=== PATIENT | female | born 1990 | race Caucasian/White ===

== ENCOUNTER 2017-02-07 05:45 | Day surgery (SDC) | payer BC ==
[~2017-02-07] VITALS: Ht 165.1 cm; Wt 90.7 kg
[2017-02-07 06:55] LABS: HCG,QUAL RESULT NEGATIVE (NEGATIVE)
[2017-02-07] MEDS ORDERED: WATER FOR IRRIGATION,STERILE 1,000 ML IRRIG.SOLN IR ONE (07:20)
[2017-02-07] MEDS ORDERED: PROPOFOL 200MG/ 20ML VIAL (DIPRIVAN) IV ONE (07:20)
[2017-02-07] MEDS ORDERED: ONDANSETRON HCL 4 MG/2 ML VIAL IVP ONE (07:20)
[2017-02-07] MEDS ORDERED: SEVOFLURANE 15 MIN GAS INH ONE (07:20)
[2017-02-07] MEDS ORDERED: MIDAZOLAM HCL 5 MG/5 ML VIAL IVP ONE (07:20)
[2017-02-07] MEDS ORDERED: SUCCINYLCHOLINE CHLORIDE 20 MG/ML(QUELICIN) IVP ONE (07:20)
[2017-02-07] MEDS ORDERED: fentaNYL CITRATE/PF 100 MCG/2 ML AMP IVP ONE (07:20)
[2017-02-07] MEDS ORDERED: fentaNYL CITRATE 250 MCG/5 ML AMP IV ONE (07:20)
[2017-02-07] MEDS ORDERED: LR 1,000 ML IV.SOLN IV ONE (07:20)
[2017-02-07] MEDS ORDERED: DEXAMETHASONE SOD PHOSPHATE 4 MG/ML VIAL IVP ONE (07:20)
[2017-02-07] MEDS ORDERED: LR 1,000 ML IV SCH (08:08)
[2017-02-07] MEDS ORDERED: METOCLOPRAMIDE HCL 10 MG/2 ML VIAL IVP PRN (08:15)
[2017-02-07] MEDS ORDERED: MORPHINE 4 MG/ML INJ. SYRINGE IVP PRN ×3 (08:15)
[2017-02-07] MEDS ORDERED: MORPHINE 4 MG/ML INJ. SYRINGE ONE (08:38)
[2017-02-07 11:04] VITALS: BP_SYST 118
== END 2017-02-07 10:55 | disposition home or self-care (01) ==
LOC: SDS 05:45 → SMU 05:45 → SDS 10:55
PROVIDERS: ATTEND Otolaryngology
DX: J35.01 Chronic tonsillitis (principal); E66.9 Obesity, unspecified; Z68.33 Body mass index [BMI] 33.0-33.9, adult
CPT/HCPCS: 42826; 84703; 88304; J0330; J1100; J2250; J2270; J2405; J2704; J3010 ×2; J7120

== ENCOUNTER 2017-02-09 07:29 | Emergency (ER) | payer BC ==
[~2017-02-09] VITALS: Ht 165.1 cm; Wt 90.7 kg
[2017-02-09 07:33] VITALS: BP_SYST 147
[2017-02-09] MEDS ORDERED: NACL 0.9% 1,000 ML IV ONE (07:38)
[2017-02-09] MEDS ORDERED: ONDANSETRON HCL 4 MG/2 ML VIAL IVP ONE (07:45)
[2017-02-09] MEDS ORDERED: LIDOCAINE 4% TOPICAL 50 ML BOTTLE MM ONE (07:45)
[2017-02-09 08:29] LABS: CALCIUM 8.4 mg/dL (8.4-11.0); CREATININE 0.6 mg/dL (0.55-1.30); POTASSIUM 3.2 mmol/L (3.5-5.1)
[2017-02-09 08:34] LABS: ALBUMIN 3.3 g/dL (3.4-4.8); TOTAL BILIRUBIN 0.4 mg/dL (0.0-1.0)
[2017-02-09 08:38] LABS: BASOPHILS % (AUTO) 0.2 % (0.0-2.0); EOSINOPHILS % (AUTO) 0.2 % (0.0-4.0); HEMATOCRIT 35.6 % (36-48); LYMPHOCYTES # (AUTO) 1.3 K/uL (1.0-5.5); LYMPHOCYTES % (AUTO) 10.2 % (20.5-51.5); MEAN CORPUSCULAR HEMOGLOBIN 29 pg (27-31); MEAN CORPUSCULAR HGB CONC 34 % (32-36); MEAN CORPUSCULAR VOLUME 86 fL (79.0-98.0); MONOCYTES # (AUTO) 0.5 K/uL (0.0-1.0); MONOCYTES % (AUTO) 4.2 % (1.7-9.3); NEUTROPHILS # (AUTO) 10.8 K/uL (1.8-7.7); NEUTROPHILS % (AUTO) 85.2 % (40.0-70.0); PLATELET COUNT (AUTO) 317 K/uL (130-430); RED BLOOD CELL COUNT(AUTO) 4.17 MIL/uL (4.2-6.2); RED CELL DISTRIBUTION WIDTH 11.9 % (9.0-15.0); WHITE BLOOD COUNT (AUTO) 12.6 K/uL (4.8-10.8)
[2017-02-09] MEDS ORDERED: cefTRIAXone 1 GM in D5W 50 ML IV ONE (09:00)
[2017-02-09] MEDS ORDERED: cefTRIAXone 1 GM VIAL ONE (09:03)
[2017-02-09 09:25] VITALS: BP_SYST 137
== END 2017-02-09 09:25 | disposition home or self-care (01) ==
LOC: SED 07:29
DX: G89.18 Other acute postprocedural pain (principal); E86.0 Dehydration; Z90.49 Acquired absence of other specified parts of digestive tract
CPT/HCPCS: 36415; 80053; 85025; 96361; 96365; 96375; 99284; J0696; J2405; J7040; J7030

== ENCOUNTER 2018-04-12 16:56 | Emergency (ER) | payer BC, MEDICAID ==
[~2018-04-12] VITALS: Ht 162.6 cm; Wt 90.7 kg
[2018-04-12 17:35] VITALS: BP_SYST 134
[2018-04-12] MEDS ORDERED: KETOROLAC TROMETHAMINE 30 MG VIAL IM ONE (17:45)
[2018-04-12 19:05] VITALS: BP_SYST 130
== END 2018-04-12 19:05 | disposition home or self-care (01) ==
LOC: SED 16:56
DX: S76.912A Strain of unspecified muscles, fascia and tendons at thigh level, left thigh, initial encounter (principal); W01.0XXA Fall on same level from slipping, tripping and stumbling without subsequent striking against object, initial encounter; Y93.89 Activity, other specified; Y92.89 Other specified places as the place of occurrence of the external cause; Y99.8 Other external cause status
CPT/HCPCS: 73552; 81025; 96372; 99283; J1885

== ENCOUNTER 2023-02-23 16:52 | Emergency (ER) | payer BC, OTHER ==
[~2023-02-23] VITALS: Ht 165.1 cm; Wt 90.7 kg
[2023-02-23 17:00] VITALS: BP_SYST 102; PULSE 138; PULSE 91; RESP 19; TEMP 97.9; O2SAT 100
[2023-02-23 18:11] LABS: INFLUENZA TYPE A Negative (NEGATIVE); INFLUENZA TYPE B NEGATIVE (NEGATIVE)
[2023-02-23 18:13] LABS: COVID19 ANTIGEN SOFIA FIA NEGATIVE (NEGATIVE)
[2023-02-23 19:18] VITALS: BP_SYST 112; PULSE 91; RESP 19; TEMP 97.9; O2SAT 100
== END 2023-02-23 19:18 | disposition home or self-care (01) ==
LOC: SED 16:52
DX: B34.9 Viral infection, unspecified (principal); J02.9 Acute pharyngitis, unspecified; Z79.899 Other long term (current) drug therapy; Z20.822 Contact with and (suspected) exposure to COVID-19
CPT/HCPCS: 36415; 99283